=== PATIENT | female | born 1950 | race Caucasian/White ===

== ENCOUNTER 2017-09-01 06:22 | Inpatient (IN) ==
[2017-09-01] MEDS ORDERED: LOPRESSOR ONE (06:47)
[2017-09-01] MEDS ORDERED: ZOFRAN ONE (06:48)
[2017-09-01] MEDS ORDERED: MORPHINE ONE (06:49)
[2017-09-01] MEDS ORDERED: ZOFRAN IV ONE (06:51)
[2017-09-01] MEDS ORDERED: MORPHINE IV ONE (06:51)
[2017-09-01] MEDS ORDERED: LOPRESSOR IV ONE (06:52)
[2017-09-01 07:01] LABS: MANUAL DIFF NEEDED? NO
--- NOTE | 2017-09-01 07:01 | EKG Report ---
Test Performed on : 09/01/2017 06:40:46 AM Test Reason : CHEST PAIN Blood Pressure : / mmHG Vent. Rate : 155 BPM Atrial Rate : 170 BPM P-R Int : 000 ms QRS Dur : 078 ms QT Int : 294 ms P-R-T Axes : 000 -11 050 degrees QTc Int : 472 ms Atrial fibrillation. with rapid ventricular response. Marked ST abnormality, possible inferior subendocardial injury Abnormal ECG No previous ECGs available Unconfirmed Result
[2017-09-01 07:03] LABS: BASO% 0.3 % (0.0-0.8); EOS# 0.08 X1000 (0.0-0.7); HEMATOCRIT 43.1 % (37.0-47.0); HEMOGLOBIN 15.3 g/dL (12.0-16.0); IMM GRAN# 0.05 X1000 (0.0-0.04); IMM GRAN% 0.6 % (0.0-0.5); LYMPH# 1.83 X1000 (1.2-3.4); LYMPH% 22.9 % (20.5-51.1); MCH 33.5 PG (27-31); MCHC 35.5 g/dL (33-37); MCV 94.3 FL (81-99); MONO# 1.02 X1000 (0.11-0.59); MONO% 12.8 % (1.7-9.3); MPV 9.3 FL (7.4-10.4); NEUT% 62.4 % (42.2-75.2); PLT 328 X1000 (130-400); RBC 4.57 XMIL (4.2-5.4)
[2017-09-01 07:21] LABS: INR 0.92 (0.86-1.15); PROTIME 13.1 Seconds (12.1-15.5); PTT PL 21.8 Seconds (22.6-43.9)
[2017-09-01 07:24] LABS: AGAP 20; ALBUMIN 3.8 g/dL (3.5-5.0); ALKALINE PHOSPHATASE 44 U/L (32-104); AMYLASE 71 U/L (20-200); BUN 10 mg/dL (8-22); CALCIUM 9.4 mg/dL (8.8-10.2); CHLORIDE 96 mmol/L (98-107); CK PROFILE 90 U/L (24-173); COSMO 267; GOT 18 U/L (10-30); GPT 12 U/L (10-36); LIPASE 36 U/L (13-60); MAGNESIUM 2.2 mg/dL (1.5-2.7); POTASSIUM 3.7 mmol/L (3.5-5.1); SODIUM 133 mmol/L (136-145); TCO2 17 mmol/L (25-35); TOTAL PROTEIN 7.4 g/dL (6.3-8.3)
[2017-09-01] MEDS ORDERED: NS 1,000 ML IV ONE ×2 (07:53→11:03)
[2017-09-01] MEDS ORDERED: NS 1,000 ML ONE (07:56)
[2017-09-01 08:37] LABS: URINE CULTURE PL NEEDED? NO
[2017-09-01 08:41] LABS: BILIRUBIN URINE NEGATIVE (NEGATIVE); BLOOD URINE NEGATIVE (NEGATIVE); CLARITY CLEAR (CLEAR); COLOR YELLOW; GLUCOSE URINE NEGATIVE (NEGATIVE); LEUKOCYTES URINE NEGATIVE (NEGATIVE); NITRITE URINE NEGATIVE (NEGATIVE); PROTEIN URINE NEGATIVE (NEGATIVE); UROBILINOGEN URINE NORMAL
[2017-09-01 08:42] LABS: URINE EPITHELIAL CELLS >10 /HPF (<10); URINE SOURCE CLEAN CATCH; URINE WBC <10 /HPF (<10)
--- NOTE | 2017-09-01 10:02 | EKG Report ---
Test Performed on : 09/01/2017 09:01:42 AM Test Reason : repeat Blood Pressure : / mmHG Vent. Rate : 125 BPM Atrial Rate : 141 BPM P-R Int : 000 ms QRS Dur : 074 ms QT Int : 348 ms P-R-T Axes : 000 -13 030 degrees QTc Int : 502 ms Atrial fibrillation. with rapid ventricular response. with premature ventricular or aberrantly condu cted complexes. Nonspecific ST abnormality Abnormal ECG When compared with ECG of 01-SEP-2017 06:40, (Unconfirmed) ST less depressed in Inferior leads ST no longer depressed in Anterolateral leads Unconfirmed Result
[2017-09-01] MEDS ORDERED: LOVENOX 1 MG/KG SUBQ ONE (11:08)
[2017-09-01] MEDS ORDERED: CARDIZEM 100 MG/NS 100 MG/100 ML IVPB IV SCH ×2 (11:09→12:28)
[2017-09-01] MEDS ORDERED: LOVENOX ONE (11:35)
[2017-09-01] MEDS ORDERED: G.I. COCKTAIL PO ONE (12:26)
[2017-09-01] MEDS ORDERED: SODIUM CHLORIDE 0.9% INJ SCH (12:30)
[2017-09-01] MEDS ORDERED: PROTONIX IV SCH (12:30)
[2017-09-01] MEDS: CARAFATE LIQUID PO SCH ×2 (13:28→20:13)
[2017-09-01] MEDS: LOPRESSOR PO SCH ×2 (13:28→20:13)
[2017-09-01] MEDS: CARDIZEM PO SCH ×2 (13:28→20:13)
[2017-09-01] MEDS ORDERED: CARDIZEM PO SCH (14:00)
--- NOTE | 2017-09-01 14:12 | EKG Report ---
Test Performed on : 09/01/2017 12:29:56 PM Test Reason : convert to NSR Blood Pressure : / mmHG Vent. Rate : 080 BPM Atrial Rate : 080 BPM P-R Int : 132 ms QRS Dur : 076 ms QT Int : 386 ms P-R-T Axes : 078 -11 060 degrees QTc Int : 445 ms Normal sinus rhythm. Normal ECG When compared with ECG of 01-SEP-2017 09:01, (Unconfirmed) Sinus rhythm. has replaced Atrial fibrillation. Vent. rate has decreased BY 45 BPM Confirmed by Az Ambriz MD ([id number]) on 10/04/2017 6:33:12 PM
--- NOTE | 2017-09-01 16:11 | HISTORY AND PHYSICAL ---
CHIEF COMPLAINT: Chest pain. HISTORY OF PRESENT ILLNESS: This is a 67-year-old female who comes in from home with an elevated heart rate up into the 150s. She describes pain as pressure like in the center of the chest, increasing up her epigastric area, also with associated shortness of breath. When she came into the ER, she had initial EKG with atrial fibrillation rate of [address] changes in her inferior leads. 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 Apparently this happened a week ago and she was in [place] at that time and I think was observed overnight and went home. She denies a history of atrial fibrillation. She is not on chronic anticoagulation. She is on meloxicam. Recently she has had a course of steroids for an acute back strain injury, so she has been on very high dose steroids the last several days as well. The patient is admitted for atrial fibrillation, RVR and chest pain. PAST MEDICAL HISTORY: 1. Herniated lumbar disk. 2. MVP. 3. Hypertension. 4. GERD. 5. Hiatal hernia. PAST SURGICAL HISTORY: 1. Appendectomy. 2. Hysterectomy. 3. Right knee arthroscopy. 4. Bilateral breast surgery. SOCIAL HISTORY: No tobacco or ethanol. No drugs. ALLERGIES: Ultram, Demerol, Dilaudid, codeine, Tessalon Perles and Levaquin. REVIEW OF SYSTEMS: Ten systems reviewed, otherwise negative. PHYSICAL EXAMINATION: VITAL SIGNS: Blood pressure is 140/65, heart rate 84, respiratory rate 20, temperature 97.5, saturation 99% on 2 L. CARDIOVASCULAR: Regular rate and rhythm. PULMONARY: Bilateral breath sounds clear to auscultation. GASTROINTESTINAL: Abdomen soft, nontender and nondistended. Bowel sounds were positive. HEENT: Pupils are equal, round and reactive to light. Extraocular movements were intact. NECK: Supple. EXTREMITIES: No clubbing or cyanosis. LYMPHATIC: No peripheral edema. NEUROLOGICAL: Nonfocal. DIAGNOSTIC DATA: White count is 7, hemoglobin and hematocrit of 15 and 43, platelets 328. Coags are okay. Basic was normal. Troponin was negative x3. ASSESSMENT: This is a 67-year-old female with MVP, who presents with atrial fibrillation with RVR ad some dyspepsia issues. 1. Atrial fibrillation with rapid ventricular response. Clinically she is stabilizing. She has converted. Dr. Geronimo has already seen her and has recommended going up on her Lopressor. She is also still on Cardizem, so she is getting both. Her CHADS score is about 2, though. She is female and 67, but I will defer to Cardiology about long-term anticoagulation. We will do DVT prophylaxis. 2. GI. She does describe epigastric pain, reflux type symptoms, most consistent with GERD gastritis. I put her on IV PPI. Dr. Geronimo has ordered Carafate. I will do a right upper quadrant, although her liver enzymes are negative. She has no Melgar sign, no white count, and she will probably need an outpatient referral to GI. She is new to this area. This is a service admission. cc: Paulo Melgar MD
--- NOTE | 2017-09-01 16:22 | CONSULTATION ---
DATE OF CONSULTATION: 09/01/2017 REQUESTING PHYSICIAN: Dr. Melgar, Hospitalist Service CHIEF COMPLAINT: Chest pain, palpitations and irregular heartbeat. HISTORY OF PRESENT ILLNESS: Ms. Cruz is a 67-year-old female who normally follows with Dr. Caden Severino, phone number [phone], with the [facility] in [place]. They have relocated to [place] within the past 1 year. She states that she was in her usual state of health up until about a month ago when she started having back pains, and Dr. Barnhart gave her a round of steroids around 08/02/2017. Around that time, she went to the ER because she could not use her right leg. Then on 09/28/2017, she was prescribed a round of steroids again because of recurrence of back pain. She took 6 pills of steroids on 08/30/2017, and she woke up in the middle of the night about 3:00 or 4:00 in the morning with severe substernal chest pain. This was not worsened by respirations or motion. She got really scared and ended up going to [facility] for evaluation to rule out myocardial infarction and they sent her home. Last night she was very nauseous, having dry heaves. Early this morning, she broke out in a sweat at about 3:00 in the morning, having significant chest pain, vomited. She came in to the ER at [facility] and over here, they did EKG at 6:49 in the morning that shows atrial fibrillation with rapid response and diffuse ST-T depression. Subsequent EKG at a lower heart rate shows atrial fibrillation with rate of 125, and the ST depression is not so much more noticeable. Subsequent EKG done after she converted at 12:29 shows sinus rhythm, the ST segment is normal. She has had 3 sets of troponin levels checked thus far, and all of them are negative. Her CPKs are also negative, 3 of them. Her pain has decreased to about 4/10 in intensity. It was 10/10 two days ago. She is more comfortable right now. PAST MEDICAL HISTORY: Irregular heartbeats. She has had syncope in the past. She has been followed by a gum remover for many years in [place]. Eventually over the course of the years, they have done heart catheterizations about 5 to 10 years ago that showed no significant coronary disease. She has been treated for hypertension. She has never had ablation. She has never been diagnosed with atrial fibrillation. 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 She does have chronic back pain. PAST SURGICAL HISTORY: Positive for appendectomy. She had back surgery in 2000. She had right knee surgery, arthroscopic, about 3 years ago. She has had hysterectomy in 1982. She has had 2 breast biopsies. SOCIAL HISTORY: She is . She has no children. She is not a smoker, not a drinker. FAMILY HISTORY: Father had CA at age 54, at the age of 64. One brother had CA in his 60s. HOME MEDICATIONS: Listed included estradiol, meloxicam, hydralazine, cyanocobalamin, metoprolol 50 twice a day and Nexium 20 mg daily. ALLERGIES: Tessalon Perles, codeine, hydromorphone, Levaquin, meperidine and tramadol. REVIEW OF SYSTEMS: Generally able to do everything except for recently when she developed back pain. PHYSICAL EXAMINATION: Blood pressure is 140/65, pulse right now has dropped to 80, respirations 20, temperature 97.5. She is awake, alert and oriented, in no distress. HEENT is unremarkable. Chest: Clear to auscultation and percussion. Heart sounds are regular and rhythmic. No gallop or murmur. Abdomen: Soft, nontender. No masses. No hepatomegaly. Extremities showed good pulses, no peripheral edema. Neurologic: Follows commands. Moves all 4 extremities. DIAGNOSTIC DATA: Blood work showed sodium 133, potassium 3.7, BUN is 10, creatinine 0.6. D-dimer less than 0.22. PT and PTT are normal. Urinalysis is basically normal. IMPRESSION: 1. The patient is presenting with relatively atypical chest pain compounded with atrial fibrillation with rapid response with an abnormal ECG suspicious for ischemia. She had ruled out for myocardial infarction, and she has converted from atrial fibrillation into sinus rhythm. 2. History of "irregular heartbeats" in the past.History of syncope in the past. 3. History of hypertension. 4. Chronic back pain. RECOMMENDATIONS: Since the patient has converted to sinus rhythm, I would probably keep her on metoprolol 50 every 6 hours for the time being with low dose diltiazem. I would arrange for a cardiac CTA to make sure that she does not have any significant coronary stenosis, and if that is the case and she is feeling fine, she could probably be discharged. I believe the etiology of her pain more than likely is gastroesophagitis, probably precipitated by the courses of the steroids. We are going to give her some Carafate and Protonix, and we will see how she does. Further advice will be forthcoming. Thank you for the opportunity to participate in her evaluation. cc: Armand Geronimo MD MTDD
[2017-09-01] MEDS: LOVENOX SUBQ SCH ×2 (17:00→17:01)
[2017-09-02] MEDS: CARAFATE LIQUID PO SCH ×2 (01:55→08:11)
[2017-09-02] MEDS: CARDIZEM PO SCH ×2 (01:55→08:11)
[2017-09-02] MEDS: LOPRESSOR PO SCH ×2 (01:55→08:11)
[2017-09-02 05:38] LABS: MANUAL DIFF NEEDED? NO
[2017-09-02 05:59] LABS: BASO% 0.4 % (0.0-0.8); EOS# 0.15 X1000 (0.0-0.7); EOS% 2.7 % (0.0-10.0); HEMATOCRIT 36.5 % (37.0-47.0); HEMOGLOBIN 11.8 g/dL (12.0-16.0); IMM GRAN# 0.05 X1000 (0.0-0.04); IMM GRAN% 0.9 % (0.0-0.5); LYMPH# 1.43 X1000 (1.2-3.4); LYMPH% 25.5 % (20.5-51.1); MCH 31.8 PG (27-31); MCHC 32.3 g/dL (33-37); MCV 98.4 FL (81-99); MONO# 0.65 X1000 (0.11-0.59); MONO% 11.6 % (1.7-9.3); MPV 10.3 FL (7.4-10.4); NEUT% 58.9 % (42.2-75.2); PLT 257 X1000 (130-400); RBC 3.71 XMIL (4.2-5.4)
--- NOTE | 2017-09-02 06:14 | EKG Report ---
Test Performed on : 09/02/2017 06:07:41 AM Test Reason : atrial fibrillation Blood Pressure : / mmHG Vent. Rate : 067 BPM Atrial Rate : 067 BPM P-R Int : 150 ms QRS Dur : 080 ms QT Int : 424 ms P-R-T Axes : 071 -13 047 degrees QTc Int : 448 ms Normal sinus rhythm. Normal ECG When compared with ECG of 01-SEP-2017 12:29, (Unconfirmed) No significant change was found Confirmed by Az Ambriz MD ([id number]) on 10/04/2017 6:32:21 PM
[2017-09-02 06:22] LABS: AGAP 8; BUN 7 mg/dL (8-22); CALCIUM 7.8 mg/dL (8.8-10.2); CHLORIDE 104 mmol/L (98-107); CK PROFILE 71 U/L (24-173); COSMO 267; POTASSIUM 3.7 mmol/L (3.5-5.1); SODIUM 135 mmol/L (136-145); TCO2 23 mmol/L (25-35)
--- NOTE | 2017-09-02 09:18 | Diag Imaging Result Doc PS360 ---
EXAM: US GB < RUQ (LIMITED) HISTORY: epigastric pain TECHNIQUE: COMPARISON: None. FINDINGS: Normal pancreas, aorta, and inferior vena cava. No hepatic abnormality. No ascites in the right upper quadrant. Normal right kidney. No hydronephrosis. Normal gallbladder. No stones. The common bile duct measures 3 mm. IMPRESSION: Normal right upper quadrant ultrasound. Electronically signed by Trevor Smith 09/02/2017 9:16 AM
[2017-09-02] MEDS ORDERED: LOPRESSOR ONE (11:11)
[2017-09-02] MEDS ORDERED: NITROGLYCERIN LINGUAL SPRAY ONE (11:11)
--- NOTE | 2017-09-02 11:36 | Diag Imaging Result Doc PS360 ---
EXAM: CT ANGIOGRAM HEART W/WO CONT HISTORY: chest pain/abnormal ECG TECHNIQUE: This is an over read of the mediastinal structures, lungs, chest, and upper abdomen included from a coronary artery CT angiogram. Coronary arteries, aorta, and great vessels will be reviewed and interpreted under separate report by one the cardiologists with [facility]. COMPARISON: None. FINDINGS: Calcium score equals zero. No enlarged mediastinal or hilar lymph nodes. No pleural effusions. There is basilar atelectasis. No consolidation. No lung nodules. There is fatty infiltration of the liver. IMPRESSION: Fatty infiltration of the liver, otherwise negative exam. Electronically signed by Trevor Smith 09/02/2017 11:34 AM
--- NOTE | 2017-09-02 12:59 | ECHO REPORT ---
ORDER DATE: 09/02/2017 ECHOCARDIOGRAPHIC MEASUREMENTS: 1. Interventricular septum 0.8. 2. Left ventricular posterior wall 0.8. 3. Diastolic diameter 4.5. 4. Left atrium 3.7. 5. Aorta 2.8. 6. Aortic valve leaflets were trileaflet. 7. Mitral valve was normal. 8. Tricuspid valve was normal. 9. Pulmonic valve was normal. 10. Normal left ventricular cavity size. 11. Estimated ejection fraction of 70%. 12. There is left atrial enlargement. 13. There is no aortic stenosis. 14. There is trace aortic regurgitation. 15. There is mild mitral regurgitation. 16. Mild tricuspid regurgitation. 17. Peak velocity across the tricuspid valve was 2.7 m/sec. 18. Pulmonary artery systolic pressure of 39-42 mmHg. 19. There is mild pulmonary regurgitation. 20. There is no pericardial effusion or obvious intracardiac mass or thrombus. cc: MD Paulo Clark MD
[2017-09-02] MEDS ORDERED: CARDIZEM CD PO ONE (13:06)
[2017-09-02 13:21] VITALS: BP 157/57
--- NOTE | 2017-09-02 13:25 | CTA CORONARY ---
DATE: 09/02/2017 INDICATION: Chest pain, paroxysmal atrial fibrillation. Coronary artery disease is being evaluated. DESCRIPTION OF PROCEDURE: The patient was treated with beta blockers and calcium blockers. She was brought to the cardiac CT suite. She received intravenous dye per protocol. Multiple tomographic views of the cardiac structure were obtained. The following is the summary of the main findings. FINDINGS: 1. The left atrium and its appendage appear to be anatomically normal. 2. The pulmonary veins have normal anatomic configuration. Two superior and two inferior pulmonary veins. 3. Pulmonary arteries also appear to have normal configuration. There is no evidence of pulmonary embolism or blood clot within the pulmonary arteries proximally. 4. The aortic valve has 3 cusps. The ascending aorta appears to be unremarkable. The ascending thoracic aorta shows scattered plaque. 5. The mitral valve appears to be grossly normal. 6. Left ventricle shows normal function with ejection fraction of 70% with normal end diastolic volume at 67 mL. 7. The left atrium and right atrium appear to be grossly normal. CORONARY ARTERIES: 1. Left main coronary artery: This vessel appears to be anatomically normal. It gives rise to LAD and circumflex. 2. Left anterior descending coronary artery: This vessel shows some proximal narrowing of no more than 25%, without any definite significant plaque. This vessel gives rise to septal branches, a more distal diagonal branch, and it wraps around the apex of the left ventricle. As it reaches the apex of the left ventricle, it gives rise to a terminal diagonal. The LAD is basically free of any critical obstruction. 3. Circumflex coronary artery: This vessel is nondominant. It gives rise to a lateral branch which is free of any obstruction. The high lateral branch is a normal caliber vessel. It supplies the anterolateral portion of the left ventricle. Then the circumflex gives rise to a tiny midlateral branch and more distally gives rise to a good size posterolateral vessel which is free of any obstruction. The circumflex system is free of any disease. 4. Right coronary artery: The right coronary artery is a dominant vessel. It arises from the right coronary sinus of Valsalva in a normal fashion. It gives rise to sinus malka branch. The right coronary artery is tortuous, and it supplies acute marginal vessels. Distally it supplies the posterior descending branch and a small tortuous posterolateral vessel. The right coronary artery and its terminal branches appear to be free of any significant obstruction. CALCIUM SCORE: The calcium score is zero. PERICARDIUM: The pericardium appears to be free of any calcification or any significant fluid. SUMMARY: This study shows: 1. No evidence of any coronary artery obstruction. The left main, the LAD, circumflex and right coronary artery are free of any critical lesions. The proximal LAD seems to have a less than 25% tubular narrowing; however, no significant plaque appears to be associated with it. It may be just an anatomical variant. 2. Normal left ventricular systolic function. Ejection fraction is 70%. 3. Unremarkable aortic valve, aorta, mitral valve, left atrial appendage and pulmonary arteries. 4. Calcium score was zero. 5. No pericardial effusion was noted. Clinical correlation is recommended. Cardiovascular prognosis for medium and probably detention is good. cc: Armand Geronimo MD
--- NOTE | 2017-09-02 20:44 | PROGRESS NOTE ---
DATE: 09/02/2017 Patient seen and examined by myself. Full note dictated by the nurse practitioner. Patient is feeling much better. She is scheduled for a stress test this morning and should that be normal she will be discharged home this afternoon. cc: Trenton Cedeno MD
--- NOTE | 2017-09-03 08:14 | DISCHARGE SUMMARY ---
ADMISSION DATE: 09/01/2017 DISCHARGE DATE: 09/02/2017 DIAGNOSES: 1. Atrial fibrillation, rapid ventricular response. 2. Gastroesophageal reflux disease. 3. Hypertension. 4. History of hiatal hernia. CONSULTS: Dr. Geronimo, cardiology. DIAGNOSTICS: 1. Cardiac CT revealed a calcium score equal to 0. No enlarged mediastinal or hilar lymph nodes. No pleural effusions. There is bibasilar atelectasis with no consolidation and no lung nodules. There is fatty infiltration of the liver. 2. Coronary angiography CT revealed calcium score of 0. Pericardium appears to be free of any calcification or any significant fluid. No evidence of any coronary artery obstruction. Left main, LAD, circumflex, right coronary artery are free of critical lesions. The proximal LAD seems to have a less than 25% narrowing with no plaque appearing. 3. Echocardiogram revealed an EF of 70% with normal left ventricular cavity size. There is no pericardial effusion or obvious intracardiac mass or thrombus seen. 4. Abdominal ultrasound revealed normal right upper quadrant ultrasound. HOSPITAL COURSE: Ms. Cruz presented to the emergency room complaining of chest pains and palpitations. She was found to be in atrial fibrillation, RVR. She ruled out for MS. She did convert from atrial fibrillation to sinus rhythm, being controlled on Cardizem p.o. She had no further epigastric pain or burning. DISCHARGE PHYSICAL EXAMINATION: Cardiovascular: Regular rate and rhythm. S1 and S2 are appreciated. Pulmonary: Breath sounds are clear with no increased work of breathing noted. Gastrointestinal: Abdomen is soft, nontender, nondistended with bowel sounds in all 4 quadrants. Extremities: No clubbing, cyanosis, or edema. Calves are nontender and pulses are palpable x4. Neurologic: She is alert and oriented x3. Cranial nerves 2-12 grossly intact. PROBLEM LIST: 1. Atypical chest pain compounded with atrial fibrillation, rapid ventricular response, resolved. 2. Atrial fibrillation, rapid ventricular response, resolved, currently in sinus rhythm. 3. Hypertension. 4. Gastroesophageal reflux disease. 5. Hiatal hernia. DISCHARGE MEDICATIONS: Vagifem 10 mcg as directed, Nexium 20 mg daily, meloxicam 15 daily, Apresoline 25 b.i.d., Carafate 1 g 4 times a day, estradiol 1 mg daily, Cardizem CD 120 mg daily. FOLLOWUP: She is to follow up with Dr. Geronimo in the next 2-3 weeks, sooner if needed. She has been instructed to return to the emergency room for any recurrent chest pain, palpitations, dizziness, syncope, or any questions or concerns that she may have. DISPOSITION: She is being discharged home in stable condition with family members. TIME SPENT: This is a greater than 30 minute discharge. Dictated by YENNY Dooley for Trenton Cedeno MD cc: YENNY Dooley MD
--- NOTE | 2017-09-08 06:31 | PROVIDER DOCUMENTATION ---
This chart was entered by Martita Patterson Scribe, acting as scribe for Az Ambriz MD. HPI-Abdominal Pain/GI Problem - General Chief Complaint: Epigastric Pain Stated Complaint: "BURNING ESOPHAGUS" Time Seen by Provider: 09/01/17 06:56 Source: patient, family Allergies/Adverse Reactions: Patient Allergies Allergy/AdvReac Type Severity Reaction Status Date / Time benzonatate Allergy Unknown Verified 09/01/17 06:39 [From Tessalon Perles] codeine Allergy Unknown Verified 09/01/17 06:39 hydromorphone [From Dilaudid] Allergy Unknown Verified 09/01/17 06:39 levofloxacin Allergy Unknown Verified 09/01/17 06:39 meperidine [From Demerol] Allergy Unknown Verified 09/01/17 06:39 tramadol [From Ultram] Allergy Unknown Verified 09/01/17 06:39 Home Medications: Home Medication List Medication Instructions Recorded Confirmed Last Taken Type Cyanocobalamin (Vitamin B-12) 3 tab PO DAILY 09/01/17 09/01/17 Unknown History [Vitamin B12] Esomeprazole Magnesium [Nexium] 20 mg PO DAILY 09/01/17 09/01/17 Unknown History Estradiol 1 mg PO DAILY 09/01/17 09/01/17 Unknown History Estradiol [Vagifem] 10 mcg VAG DIRECTED 09/01/17 09/01/17 Unknown History Hydralazine [Apresoline] 25 mg PO BID 09/01/17 09/01/17 Unknown History Meloxicam 15 mg PO DAILY 09/01/17 09/01/17 Unknown History Diltiazem C.d. [Cardizem C.d] 120 mg PO DAILY #30 capsule 09/02/17 Unknown Rx Sucralfate [Carafate] 1 gm PO 4XDAY #120 tablet 09/02/17 Unknown Rx - History of Present Illness-ABD Nature of Presenting Problems: 67 year old female presents to the ER with complaint of epigastric pain, N/V/D and generalized weakness x 2 days. Pt was seen at ER 2 days ago for same symptoms. Pt presents today because symptoms are still presents. Pt describes burning in esophagus and is diaphoretic. Abdominal Pain Onset Location: reports: epigastric Onset/Duration: reports: 2 days ago Timing: reports: still present Associated Symptoms: reports: diaphoresis, diarrhea, nausea, vomiting, weakness Review of Systems - Adult - REVIEW OF SYSTEMS - ADULT Constitutional: denies: chills, fever Eyes: reports: no symptoms reported Ears, Nose, Mouth & Throat: reports: no symptoms reported Cardiovascular: reports: no symptoms reported Respiratory: reports: no symptoms reported Gastrointestinal: reports: diarrhea, nausea, vomiting, other (epigastric pain) Genitourinary: reports: no symptoms reported Musculoskeletal: reports: no symptoms reported Integumentary: reports: no symptoms reported Neurological: reports: no symptoms reported Psychiatric: reports: no symptoms reported Endocrine: reports: no symptoms reported Hematologic/Lymphatic: reports: no symptoms reported Allergic/Immunologic: reports: no symptoms reported All Other Systems: Reviewed and Negative Past History - Adult - PAST MEDICAL HISTORY-ADULT Review of Records: reports: Nursing Assessment Review, Medications Reviewed - IMMUNIZATION STATUS Childhood Immunizations: See Nurse Assessment Flu Vaccine: See Nurse Assessment Physical Exam-General - PHYSICAL EXAM-ADULT Initial Vital Signs Reviewed: Yes - CONSTITUTIONAL General Appearance: alert, no apparent distress - EYES Eyes: PERRL/EOMI, pink conjunctivae - HEAD, EARS, NOSE, MOUTH & THROAT HENMT: normocephalic/atraumatic, moist mucous membranes - NECK Neck: non-tender, supple - RESPIRATORY Respiratory: lungs clear, normal breath sounds - CARDIOVASCULAR Cardiovascular: normal peripheral pulses, regular rate, rhythm - MUSCULOSKELETAL Back Exam: no CVA tenderness, no vertebral tenderness Extremity: non-tender, normal inspection - SKIN Integumentary: diaphoresis - NEUROLOGIC Neurologic: grossly normal, no motor/sensory deficits - PSYCHIATRIC Psych/Mental Status: normal mood/affect, normal thought content, normal thought process, oriented x 3 Progress - PLAN OF CARE/RESULTS Progress/Plan/Lab Results: Vital Signs - 8 hr 09/01/17 06:25 09/01/17 06:48 09/01/17 06:54 Temperature 97.5 F L Pulse Rate 154 H 168 H 155 H Respiratory Rate 24 20 25 H Blood Pressure 181/102 150/89 O2 Sat by Pulse Oximetry 97 99 98 09/01/17 06:56 09/01/17 06:58 09/01/17 07:02 Temperature Pulse Rate 137 H 136 H 121 H Respiratory Rate 25 H 31 H 25 H Blood Pressure 144/91 145/87 139/69 O2 Sat by Pulse Oximetry 98 100 87 L 09/01/17 07:08 09/01/17 07:10 09/01/17 07:11 Temperature Pulse Rate 124 H 130 H 119 H Respiratory Rate 27 H 24 34 H Blood Pressure 133/82 146/65 157/59 O2 Sat by Pulse Oximetry 99 99 99 09/01/17 08:52 Temperature Pulse Rate 104 H Respiratory Rate 16 Blood Pressure 106/77 O2 Sat by Pulse Oximetry 97 Laboratory Results - last 24 hr 09/01/17 09/01/17 09/01/17 06:53 06:53 06:53 WBC RBC Hgb Hct MCV MCH MCHC RDW Std Deviation Plt Count MPV Immature Gran % (Auto) Neut % (Auto) Lymph % (Auto) [place] % (Auto) Eos % (Auto) Baso % (Auto) Immature Gran # (Auto) Neut # (Auto) Lymph # (Auto) [place] # (Auto) Eos # (Auto) Baso # (Auto) PT INR APTT (Factor Assay) D-Dimer Sodium 133 L Potassium 3.7 Chloride 96 L Carbon Dioxide 17 L Anion Gap 20 BUN 10 Creatinine 0.6 Estimated GFR/1.73 m2 > 60 BUN/Creatinine Ratio 17 Glucose 124 H Calculated Osmolality 267 Calcium 9.4 Magnesium 2.2 Total Bilirubin 0.40 AST 18 ALT 12 Alkaline Phosphatase 44 Creatine Kinase 90 Troponin T < 0.010 Phq-R-Rvvbmjskitc Pept 242 Total Protein 7.4 Albumin 3.8 Globulin 4.0 Albumin/Globulin Ratio 1.0 Amylase 71 Lipase 36 Urine Source Urine Color Urine Clarity Urine pH Ur Specific [place] Urine Protein Urine Ketones Urine Blood Urine Nitrite Urine Bilirubin Urine Urobilinogen Urine Microscopic RBC Urine WBC Urine Microscopic WBC Ur Epithelial Cells Urine Bacteria Urine Glucose 09/01/17 09/01/17 09/01/17 06:53 06:53 08:20 WBC 7.98 RBC 4.57 Hgb 15.3 Hct 43.1 MCV 94.3 MCH 33.5 H MCHC 35.5 RDW Std Deviation 13.8 Plt Count 328 MPV 9.3 Immature Gran % (Auto) 0.6 H Neut % (Auto) 62.4 Lymph % (Auto) 22.9 [place] % (Auto) 12.8 H Eos % (Auto) 1.0 Baso % (Auto) 0.3 Immature Gran # (Auto) 0.05 H Neut # (Auto) 4.98 Lymph # (Auto) 1.83 [place] # (Auto) 1.02 H Eos # (Auto) 0.08 Baso # (Auto) 0.02 PT 13.1 INR 0.92 APTT (Factor Assay) 21.8 L D-Dimer < 0.22 L Sodium Potassium Chloride Carbon Dioxide Anion Gap BUN Creatinine Estimated GFR/1.73 m2 BUN/Creatinine Ratio Glucose Calculated Osmolality Calcium Magnesium Total Bilirubin AST ALT Alkaline Phosphatase Creatine Kinase Troponin T Opu-D-Cndtqxmiiee Pept Total Protein Albumin Globulin Albumin/Globulin Ratio Amylase Lipase Urine Source CLEAN CATCH Urine Color YELLOW Urine Clarity CLEAR Urine pH 7.0 Ur Specific [place] 1.010 Urine Protein NEGATIVE Urine Ketones TRACE Urine Blood NEGATIVE Urine Nitrite NEGATIVE Urine Bilirubin NEGATIVE Urine Urobilinogen NORMAL Urine Microscopic RBC Not Reportable Urine WBC NEGATIVE Urine Microscopic WBC <10 Ur Epithelial Cells >10 A Urine Bacteria 1+ Urine Glucose NEGATIVE Orders Category Date Time Status Cardiac Monitoring DIRECTED Care 09/01/17 06:49 Active Oxygen Therapy- ED Nursing DIRECTED Care 09/01/17 06:49 Active Saline Loc DIRECTED Care 09/01/17 06:49 Active NPO Diet 09/01/17 06:49 Active AMYLASE [CHEM] Stat Lab 09/01/17 06:53 Completed CBC WITH ELECTRONIC DIFF [HEME] Stat Lab 09/01/17 06:53 Completed CK PROFILE [SP CHEM] Stat Lab 09/01/17 06:53 Completed CK PROFILE [SP CHEM] Stat Lab 09/01/17 09:08 Received COMPREHENSIVE METABOLIC PANEL [CHEM] Stat Lab 09/01/17 06:53 Completed D-DIMER PL [COAG] Stat Lab 09/01/17 06:53 Completed LIPASE [CHEM] Stat Lab 09/01/17 06:53 Completed MAGNESIUM [CHEM] Stat Lab 09/01/17 06:53 Completed PRO B-NATRIURETIC PEPTIDE Stat Lab 09/01/17 06:[address] Com[address]IME WITH INR PL [COAG] Stat Lab 09/01/17 06:[address] [COAG] Stat Lab 09/01/17 06:53 Completed TROPONIN T Stat Lab 09/01/17 06:53 Completed TROPONIN T Stat Lab 09/01/17 09:[address] W/POSS RFLX CULT [URINALYSIS] Stat Lab 09/01/17 08:20 Completed 0.9% Sodium Chloride Inj [Ns] 1,000 ml Med 09/01/17 07:56 Discontinued .ROUTE As Directed 0.9% Sodium Chloride Inj [Ns] 1,000 ml Med 09/01/17 07:53 Discontinued IV 999 mls/hr Metoprolol [Lopressor] Med 09/01/17 06:47 Discontinued 5 mg .ROUTE .STK-MED ONE Metoprolol [Lopressor] Med 09/01/17 06:52 Discontinued 5 mg IV NOW ONE Morphine Med 09/01/17 06:49 Discontinued 2 mg .ROUTE .STK-MED ONE Morphine Med 09/01/17 06:51 Discontinued 2 mg IV NOW ONE Ondansetron [Zofran] Med 09/01/17 06:48 Discontinued 4 mg .ROUTE .STK-MED ONE Ondansetron [Zofran] Med 09/01/17 06:51 Discontinued 4 mg IV NOW ONE EKG [EKG] Stat Ther 09/01/17 06:49 Draft EKG [EKG] Stat Ther 09/01/17 08:54 Ordered Result Diagrams: 09/02/17 04:03 09/02/17 04:03 - EKG 1 Time of EKG reading by physician:: 06:40 EKG Read and Signed by:: Az Ambriz EKG Interpretation (*Must complete 3 of following elements*): Abnormal Rate: 155 Rhythm: atrial fibrillation with rapid ventricular response Comments: marked ST abnormality, possible inferior subendocarial injury 2 Time of EKG reading by physician:: 09:01 EKG Read and Signed by:: Az Ambriz EKG Interpretation (*Must complete 3 of following elements*): Abnormal Rate: 125 Rhythm: atrial fibrillation with rapid ventricular response with premature ventricu ST Wave: non-specific ST changes Departure - Departure Date of Disposition Decision: 09/02/17 Time of Disposition Decision: 15:55 DIAGNOSIS: Abdominal pain, Afib Disposition: HOME 01 Certified Medical Emergency: Emergent Condition: Stable - Critical Care Note This patient required my direct & personal management of CC.: No Attestation - Physician/ MODESTA Attestation Patient care was provided by Advanced Practice Provider:: No The physician spent face to face time with patient:: Yes Advanced Practice Provider documentation review:: Supervising physician onsite and consulted in the evaluation and care of this patient. The physician did have a face to face encounter with the patient. This chart was documented by the indicated scribe, (Martita Patterson, Scribe) and accurately reflects the services I performed and decisions made by me, Az Ambriz MD, as attested by the provider's signature.
== END 2017-09-02 15:55 | disposition home or self-care (01) ==
LOC: P.ED 06:22 → P.ICU 11:23 → SUATTDRO 11:23
PROVIDERS: ATTEND Family Medicine

== ENCOUNTER 2019-06-22 09:17 | Observation (INO) ==
[2019-06-22] MEDS ORDERED: ASPIRIN PO ONE (09:18)
[2019-06-22] MEDS ORDERED: NITROGLYCERIN SL ONE (09:27)
--- NOTE | 2019-06-22 09:53 | Diag Imaging Result Doc PS360 ---
EXAM: CHEST-1 VIEW - 06/22/2019 HISTORY: SOB TECHNIQUE: Portable chest one view COMPARISON: 10/01/2017 FINDINGS: Heart size appears within normal limits. The lungs appear clear. There is no pleural effusion or pneumothorax identified. IMPRESSION: No evidence of acute disease. Electronically signed by Rico Reynoso 06/22/2019 9:51 AM
[2019-06-22] MEDS ORDERED: MORPHINE IV ONE (10:03)
[2019-06-22 10:07] LABS: BASO# 0.02 X1000 (0.0-0.2); BASO% 0.2 % (0.0-0.8); EOS# 0.01 X1000 (0.0-0.7); EOS% 0.1 % (0.0-10.0); HEMATOCRIT 42.3 % (37.0-47.0); HEMOGLOBIN 14.4 g/dL (12.0-16.0); IMM GRAN# 0.03 X1000 (0.0-0.04); IMM GRAN% 0.3 % (0.0-0.5); LYMPH# 0.95 X1000 (1.2-3.4); MCH 33.7 PG (27-31); MCV 99.1 FL (81-99); MONO# 0.36 X1000 (0.11-0.59); MONO% 4.2 % (1.7-9.3); MPV 9.4 FL (7.4-10.4); NEUT# 7.29 X1000 (1.4-6.5); NEUT% 84.2 % (42.2-75.2); PLT 227 X1000 (130-400); RBC 4.27 XMIL (4.2-5.4); WBC 8.66 X1000 (4.8-10.8)
[2019-06-22 10:11] LABS: INR 1.03; PTT 27.1 Seconds (22.3-41.8)
[2019-06-22] MEDS ORDERED: ZOFRAN IV ONE (10:12)
[2019-06-22 10:17] LABS: AGAP 13; ALBUMIN 4.1 g/dL (3.5-5.0); ALKALINE PHOSPHATASE 37 U/L (32-104); BUN 6 mg/dL (8-22); CALCIUM 8.6 mg/dL (8.8-10.2); CHLORIDE 94 mmol/L (98-107); CK PROFILE 87 U/L (24-173); COSMO 260; CREATININE 0.4 mg/dL (0.5-0.9); ESTIMATED GFR > 60; GLUCOSE 135 mg/dL (70-104); GOT 18 U/L (10-30); GPT 10 U/L (10-36); SODIUM 130 mmol/L (136-145); TCO2 23 mmol/L (25-35); TOTAL PROTEIN 6.8 g/dL (6.3-8.3)
--- NOTE | 2019-06-22 10:23 | PROVIDER DOCUMENTATION ---
This chart was entered by Nayely Og Scribe, acting as scribe for Yaya Manuel MD. HPI-Chest Pain - General Chief Complaint: Chest Pain Stated Complaint: CHEST PAIN Time Seen by Provider: 06/22/19 09:23 Source: patient Allergies/Adverse Reactions: Patient Allergies Allergy/AdvReac Type Severity Reaction Status Date / Time amlodipine Allergy Unknown Verified 05/09/19 21:23 benzonatate Allergy Unknown Verified 09/01/17 06:39 [From Tessalon Perles] carvedilol Allergy Unknown Verified 05/09/19 21:23 clonidine Allergy Unknown Verified 05/09/19 21:23 codeine Allergy Unknown Verified 09/01/17 06:39 diltiazem Allergy Unknown Verified 05/09/19 21:23 hydromorphone [From Dilaudid] Allergy Unknown Verified 09/01/17 06:39 levofloxacin Allergy Unknown Verified 09/01/17 06:39 lisinopril Allergy Unknown Verified 05/09/19 21:23 meperidine [From Demerol] Allergy Unknown Verified 09/01/17 06:39 minoxidil Allergy Unknown Verified 05/09/19 21:23 spironolactone Allergy VOMITING Verified 05/09/19 21:23 tramadol [From Ultram] Allergy Unknown Verified 09/01/17 06:39 Home Medications: Home Medication List Medication Instructions Recorded Confirmed Last Taken Type Cyanocobalamin (Vitamin B-12) 3 tab PO DAILY 09/01/17 09/01/17 Unknown History [Vitamin B12] Esomeprazole Magnesium [Nexium] 20 mg PO DAILY 09/01/17 09/01/17 Unknown History Estradiol 1 mg PO DAILY 09/01/17 09/01/17 Unknown History Estradiol [Vagifem] 10 mcg VAG DIRECTED 09/01/17 09/01/17 Unknown History Hydralazine [Apresoline] 25 mg PO BID 09/01/17 09/01/17 Unknown History Meloxicam 15 mg PO DAILY 09/01/17 09/01/17 Unknown History Diltiazem C.d. [Cardizem C.d] 120 mg PO DAILY #30 capsule 09/02/17 Unknown Rx Sucralfate [Carafate] 1 gm PO 4XDAY #120 tablet 09/02/17 Unknown Rx Promethazine [Phenergan] 1 - 2 tab PO Q6H PRN PRN #18 tablet 09/21/17 Unknown Rx Sucralfate [Carafate Liquid] 1 tbs PO Q6HR PRN #8 oz 09/21/17 Unknown Rx Hydrocodone/APAP 7.5 mg/325 mg 1 ea PO Q8H PRN PRN #10 tab 10/01/17 Unknown Rx [[place]arshall-7.5] Ondansetron Odt [Zofran 4 mg Odt] 4 mg PO Q8H PRN PRN #10 tab 10/01/17 Unknown Rx - History of Present Illness-CP Nature of Presenting Problem: 69yof presents to ED cc substernal chest pain/pressure that woke her from sleep at 5am and hasn't resolved. Pt also reports nausea but denies V/D. Pt is on a daily aspirin but didn't take it captain room service. Pt has hx of HTN and AFIB. Location: reports: substernal Quality of Pain: reports: pressure Severity in ED: mild Onset/Duration: this morning (5am) Timing: still present Context/Activities at Onset: reports: sleep Modifying Factors: improves with: nothing Associated Symptoms: reports: nausea, shortness of breath Nitro Today/Relief: no nitro taken today Review of Systems - Adult - REVIEW OF SYSTEMS - ADULT Constitutional: reports: see HPI, fatique. denies: chills, fever Eyes: reports: no symptoms reported Ears, Nose, Mouth & Throat: reports: no symptoms reported Cardiovascular: reports: see HPI, chest pain, irregular heart rate, palpitations . denies: syncope Respiratory: reports: see HPI, shortness of breath. denies: cough, wheezing Gastrointestinal: reports: see HPI, nausea. denies: abdominal pain, constipation, diarrhea, vomiting Genitourinary: reports: no symptoms reported Musculoskeletal: reports: no symptoms reported Integumentary: reports: no symptoms reported Neurological: reports: no symptoms reported Psychiatric: reports: no symptoms reported Endocrine: reports: no symptoms reported Hematologic/Lymphatic: reports: no symptoms reported Allergic/Immunologic: reports: no symptoms reported All Other Systems: Reviewed and Negative Past History - Adult - PAST MEDICAL HISTORY-ADULT Review of Records: reports: Nursing Assessment Review, Medications Reviewed, Social history reviewed & non-contributory. Major Childhood Illnesses: reports: denies history Cardiovascular: reports: A-Fib, HTN, hyperlipidemia, other (MVP) Respiratory: reports: denies history Gastrointestinal: reports: denies history Obstetrical/Gynecological: reports: denies history Genitourinary: reports: denies history Musculoskeletal: reports: denies history Neurological: reports: denies history Endocrine/Immune: reports: denies history Other Conditions: reports: denies history - PRIOR SURGERIES/PROCEDURES Surgical/Procedure History: reports: appendectomy, hysterectomy - IMMUNIZATION STATUS Childhood Immunizations: See Nurse Assessment Flu Vaccine: See Nurse Assessment - FAMILY HISTORY Family History: reviewed, not pertinent Physical Exam-General - PHYSICAL EXAM-ADULT Initial Vital Signs Reviewed: Yes - CONSTITUTIONAL General Appearance: appears well, alert, no apparent distress. negative: anxious, combative - EYES Eyes: PERRL/EOMI, pink conjunctivae. negative: photophobia - RESPIRATORY Respiratory: chest non-tender, lungs clear, normal breath sounds, no pleuratic chest pain, no respiratory distress. negative: crackles, rales, rhonchi, stridor, wheezing - CARDIOVASCULAR Cardiovascular: normal peripheral pulses, regular rate, rhythm, no edema, no gallop, no JVD, no murmur. negative: bradycardia, tachycardia - MUSCULOSKELETAL Extremity: non-tender, no pedal edema, no calf tenderness, swelling (mild both lower legs) - SKIN Integumentary: normal color, normal turgor, warm/dry. negative: cyanosis, diaphoresis, jaundice - NEUROLOGIC Neurologic: electronic assembly II-XII nml as tested, grossly normal, no motor/sensory deficits. negative: facial droop, focal weakness - PSYCHIATRIC Psych/Mental Status: normal mood/affect, normal thought content, normal thought process, oriented x 3. negative: disoriented x 3, anxious, disheveled, depressed affect - HEART Score HEART Score: History: Slightly Suspicious HEART Score: ECG: Normal HEART Score: Age: > or = 65 Years HEART Score: Risk Factors for Atherosclerotic Disease: 1 or 2 Risk Factors Progress - PLAN OF CARE/RESULTS Progress/Plan/Lab Results: Vital Signs - 8 hr 06/22/19 09:25 06/22/19 09:33 Temperature 98.3 F Pulse Rate 72 Respiratory Rate 18 Blood Pressure 195/86 O2 Sat by Pulse Oximetry 98 Laboratory Results - last 24 hr 06/22/19 06/22/19 06/22/19 08:20 08:20 08:20 WBC 8.66 RBC 4.27 Hgb 14.4 Hct 42.3 MCV 99.1 H MCH 33.7 H MCHC 34.0 RDW Std Deviation 13.0 Plt Count 227 MPV 9.4 Immature Gran % (Auto) 0.3 Neut % (Auto) 84.2 H Lymph % (Auto) 11.0 L [place] % (Auto) 4.2 Eos % (Auto) 0.1 Baso % (Auto) 0.2 Immature Gran # (Auto) 0.03 Neut # (Auto) 7.29 H Lymph # (Auto) 0.95 L [place] # (Auto) 0.36 Eos # (Auto) 0.01 Baso # (Auto) 0.02 PT 14.0 INR 1.03 PTT (Actin FS) 27.1 Sodium 130 L Potassium 4.0 Chloride 94 L Carbon Dioxide 23 L Anion Gap 13 BUN 6 L Creatinine 0.4 L Estimated GFR/1.73 m2 > 60 BUN/Creatinine Ratio 15 Glucose 135 H Calculated Osmolality 260 Calcium 8.6 L Total Bilirubin 0.30 AST 18 ALT 10 Alkaline Phosphatase 37 Creatine Kinase 87 Troponin T Total Protein 6.8 Albumin 4.1 Globulin 3.0 Albumin/Globulin Ratio 2.0 06/22/19 08:20 WBC RBC Hgb Hct MCV MCH MCHC RDW Std Deviation Plt Count MPV Immature Gran % (Auto) Neut % (Auto) Lymph % (Auto) [place] % (Auto) Eos % (Auto) Baso % (Auto) Immature Gran # (Auto) Neut # (Auto) Lymph # (Auto) [place] # (Auto) Eos # (Auto) Baso # (Auto) PT INR PTT (Actin FS) Sodium Potassium Chloride Carbon Dioxide Anion Gap BUN Creatinine Estimated GFR/1.73 m2 BUN/Creatinine Ratio Glucose Calculated Osmolality Calcium Total Bilirubin AST ALT Alkaline Phosphatase Creatine Kinase Troponin T < 0.010 Total Protein Albumin Globulin Albumin/Globulin Ratio Orders Category Date Time Status Cardiac Monitoring DIRECTED Care 06/22/19 09:19 Active Oxygen Therapy- ED Nursing DIRECTED Care 06/22/19 09:19 Active Saline Loc NOW Care 06/22/19 09:19 Active CHEST-1 VIEW [RAD] Stat Exams 06/22/19 09:19 Completed CBC WITH ELECTRONIC DIFF [HEME] Stat Lab 06/22/19 08:20 Completed CK PROFILE [SP CHEM] Stat Lab 06/22/19 08:20 Completed COMPREHENSIVE METABOLIC PANEL [CHEM] Stat Lab 06/22/19 08:20 Completed PRO B-NATRIURETIC PEPTIDE Stat Lab 06/22/19 09:32 Received PROTIME WITH INR [COAG] Stat Lab 06/22/19 08:20 Completed PTT [COAG] Stat Lab 06/22/19 08:20 Completed TROPONIN T Stat Lab 06/22/19 08:20 Completed Aspirin Med 06/22/19 09:18 Discontinued 325 mg PO NOW ONE Morphine Med 06/22/19 10:03 Discontinued 3 mg IV NOW ONE Nitroglycerin Med 06/22/19 10:30 Active 1 inch TOP Q6H Nitroglycerin Sl [Nitroglycerin] Med 06/22/19 09:27 Discontinued 0.4 mg SL NOW ONE Ondansetron [Zofran] Med 06/22/19 10:12 Discontinued 4 mg IV NOW ONE CP/SOB/Palp >45 yrs of Age Stat Oth 06/22/19 09:18 Ordered EKG [EKG] Stat Ther 06/22/19 09:19 Ordered Result Diagrams: 06/22/19 08:20 06/22/19 08:20 - REASSESSMENT Reassessment #1 Time Reassessed: 10:23 Status: improving (DISCUSSED WITH HOSPITALIST WILL ADMIT) - EKG 1 Time of EKG reading by physician:: 09:29 EKG Read and Signed by:: Yaya Manuel EKG Interpretation (*Must complete 3 of following elements*): Normal Rate: 76 Rhythm: normal sinus QRS: normal PA Interval: normal - XRAY 1 XRAY: Bilateral XRAY Study: Chest Impression: See EMR Report (IMPRESSION: No evidence of acute disease. Electronically signed by Rico Reynoso 06/22/2019 9:51 AM) Departure - Departure Date of Disposition Decision: 06/22/19 Time of Disposition Decision: 10:22 DIAGNOSIS: Chest pain Disposition: ADMITTED INPATIENT 09 Certified Medical Emergency: Emergent Condition: Stable Additional Freetext Instructions: ED Follow Up Instructions: You have been treated by a care provider in the Emergency Department. These instructions are being provided to you so you can have an understanding of how to care for yourself upon discharge. Upon discharge from the Emergency Department, you are responsible for making arrangements for follow-up care by a physician of your choice. Take all prescribed medications as directed. Return to the Emergency Department immediately for any new or worsening symptoms. You may call the Physician Referral phone number at [phone] to obtain a list of Physicians who are taking new patients. Referrals and Follow-Ups: None,PCP [Primary Care Provider] - - Critical Care Note This patient required my direct & personal management of CC.: No Attestation - Physician/ MODESTA Attestation Patient care was provided by Advanced Practice Provider:: No The physician spent face to face time with patient:: Yes Advanced Practice Provider documentation review:: Supervising physician onsite and consulted in the evaluation and care of this patient. The physician did have a face to face encounter with the patient. This chart was documented by the indicated scribe, (Nayely Og, Praveen) and accurately reflects the services I performed and decisions made by me, Yaya Manuel MD, as attested by the provider's signature.
--- NOTE | 2019-06-22 10:43 | EKG Report ---
Test Performed on : 06/22/2019 09:24:40 AM Test Reason : CP Blood Pressure : / mmHG Vent. Rate : 076 BPM Atrial Rate : 076 BPM P-R Int : 154 ms QRS Dur : 086 ms QT Int : 390 ms P-R-T Axes : 077 011 055 degrees QTc Int : 438 ms Normal sinus rhythm. Normal ECG When compared with ECG of 01-OCT-2017 06:32, No significant change was found Unconfirmed Result
[2019-06-22] MEDS ORDERED: ZOFRAN IV PRN (11:07)
[2019-06-22] MEDS ORDERED: MORPHINE IV PRN (11:07)
[2019-06-22] MEDS: NITROGLYCERIN TOP SCH ×2 (11:21→16:10)
[2019-06-22] MEDS: TYLENOL PO PRN (16:14)
[2019-06-22] MEDS ORDERED: NS 1,000 ML IV ONE ×2 (19:30→23:00)
[2019-06-22 19:44] LABS: AGAP 9; ALBUMIN 3.6 g/dL (3.5-5.0); ALKALINE PHOSPHATASE 34 U/L (32-104); BUN 6 mg/dL (8-22); CALCIUM 8.2 mg/dL (8.8-10.2); CHLORIDE 97 mmol/L (98-107); COSMO 264; CREATININE 0.5 mg/dL (0.5-0.9); ESTIMATED GFR > 60; GLUCOSE 103 mg/dL (70-104); SODIUM 133 mmol/L (136-145); TCO2 27 mmol/L (25-35); TOTAL PROTEIN 6.5 g/dL (6.3-8.3)
[2019-06-22 19:45] LABS: GOT 16 U/L (10-30); GPT 9 U/L (10-36)
--- NOTE | 2019-06-22 20:17 | HISTORY AND PHYSICAL ---
CHIEF COMPLAINT: Chest pain. HISTORY OF PRESENT ILLNESS: This is a 69-year-old female with history of atrial fibrillation and mitral valve prolapse, who comes in for chest pain. Chest pain is described as underneath her midsternum, sharp in nature, not pressure-like, did not radiate, "a hard feeling" 10/10 at its worst. She was nauseous with dry heaves. It woke her from sleep around 5 a.m. associated dyspnea. She felt like her blood pressure was high, but she did not check it. She says she has had similar symptoms associated with gastroparesis although she is not a diabetic. She has had stress test, but it has been several years ago. Workup in the ER was unremarkable. Her EKG really did not show any significant ischemic changes. Rest of her data was really unremarkable. She was placed in observation for chest pain. PAST MEDICAL HISTORY: 1. Atrial fibrillation. 2. Hypertension. 3. Mitral valve prolapse. 4. Gastroparesis may actually be GERD. PAST SURGICAL HISTORY: 1. She has had an appendectomy. 2. Hysterectomy. 3. Right total knee arthroplasty. 4. She has had back surgery. SOCIAL HISTORY: No tobacco or ethanol. FAMILY HISTORY: Father had MO starting at 54, at 64. Brother had an MO at 76 years of age. ALLERGIES: To amlodipine, Tessalon, Coreg, clonidine, diltiazem, Dilaudid, Levaquin lisinopril, Demerol, minoxidil, spironolactone, Ultram, multiple medications. HER CURRENT MEDICATIONS: Hydralazine 50 b.i.d., although she told me it was t.i.d., aspirin 81 daily, docusate 100 daily, estradiol 1 daily, metoprolol 150 b.i.d., and Nexium 20 daily. REVIEW OF SYSTEMS: Otherwise negative times a 10 point review of systems. PHYSICAL EXAM: VITAL SIGNS: Currently her blood pressure is 131/44, heart rate is 62, respiratory 16, temperature 97.5 degrees, 97% on room air. GENERAL: A well-developed female in no acute distress. HEAD EXAM: Is normocephalic atraumatic. EYE EXAM: Pupils equal, round, reactive to light. Extraocular movements were intact. EAR, NOSE AND THROAT EXAM: She had moist mucous membranes. NECK EXAM: Was supple. CARDIOVASCULAR EXAM: Was regular rate and rhythm. No murmurs, gallops, or rubs. PULMONARY EXAM: Bilateral breath sounds. Clear to auscultation. GI: Was soft, nontender, nondistended. Bowel sounds are positive. NEUROLOGICAL EXAM: Was nonfocal. Cranial nerves 2-12 were grossly intact. MUSCULOSKELETAL EXAM: Was 5/5 in all 4 extremities. LABORATORY DATA: White count 8, hemoglobin and hematocrit 14 and 42, platelets 227,000. Sodium 132. Coags normal. EKG normal. X-ray nonspecific. ASSESSMENT: This is a 69-year-old female presenting with atypical chest pain, presenting with atypical chest pain. History of mitral valve prolapse and stress. 1. Atypical chest pain. We will do serial cardiac enzymes. We will get an echo. There are mitral valve prolapse issues and perform Lexiscan tomorrow after rule out. 2. Hyponatremia. We will continue gentle hydration and follow closely. 3. Hypertension which is appears accelerated. We may have to adjust her medicines accordingly. She is on nitrates right now pending her workup. We may need to give her some long-standing nitrates. I am going to switch her over to Imdur and see how she does with that. DISPOSITION: Pending her clinical status. We will continue to monitor closely. cc: Paulo Melgar MD
[2019-06-22] MEDS ORDERED: APRESOLINE PO SCH (21:00)
[2019-06-22] MEDS: LOPRESSOR PO SCH (21:34)
[2019-06-22] MEDS: IMDUR PO SCH (21:34)
--- NOTE | 2019-06-23 06:02 | EKG Report ---
Test Performed on : 06/23/2019 05:55:25 AM Test Reason : cp Blood Pressure : / mmHG Vent. Rate : 066 BPM Atrial Rate : 066 BPM P-R Int : 160 ms QRS Dur : 084 ms QT Int : 428 ms P-R-T Axes : 072 -25 024 degrees QTc Int : 448 ms Normal sinus rhythm. Normal ECG When compared with ECG of 22-JUN-2019 09:24, (Unconfirmed) No significant change was found Unconfirmed Result
[2019-06-23] MEDS: NEXIUM PO SCH (06:07)
[2019-06-23 06:09] LABS: BASO# 0.02 X1000 (0.0-0.2); BASO% 0.3 % (0.0-0.8); EOS# 0.07 X1000 (0.0-0.7); EOS% 1.1 % (0.0-10.0); HEMATOCRIT 38.6 % (37.0-47.0); IMM GRAN# 0.02 X1000 (0.0-0.04); IMM GRAN% 0.3 % (0.0-0.5); LYMPH# 1.57 X1000 (1.2-3.4); LYMPH% 25.7 % (20.5-51.1); MCH 32.7 PG (27-31); MCHC 33.7 g/dL (33-37); MONO# 0.64 X1000 (0.11-0.59); MONO% 10.5 % (1.7-9.3); NEUT% 62.1 % (42.2-75.2); PLT 232 X1000 (130-400); RBC 3.98 XMIL (4.2-5.4); RDW 13.2 % (11.5-14.5); WBC 6.12 X1000 (4.8-10.8)
[2019-06-23 06:28] LABS: CHOLESTEROL 182 mg/dL (0-200); HDL 66 mg/dL (45-65); LDL 97 mg/dL; TRIGLYCERIDES 94 mg/dL (35-135); VLDL 19 mg/dL
[2019-06-23 06:42] LABS: BILIRUBIN URINE NEGATIVE (NEGATIVE); BLOOD URINE NEGATIVE (NEGATIVE); CLARITY CLEAR (CLEAR); COLOR YELLOW; GLUCOSE URINE NEGATIVE (NEGATIVE); NITRITE URINE NEGATIVE (NEGATIVE)
[2019-06-23 06:53] LABS: KETONE URINE NEGATIVE (NEGATIVE); SP GRAVITY URINE 1.005
[2019-06-23 06:54] LABS: LEUKOCYTES URINE NEGATIVE (NEGATIVE); PROTEIN URINE NEGATIVE (NEGATIVE); UROBILINOGEN URINE NORMAL
[2019-06-23 06:55] LABS: URINE BACTERIA 3+ /HFP
[2019-06-23 06:56] LABS: URINE CAST NONE SEEN /LPF; URINE CRYSTAL NONE SEEN /HPF; URINE EPITHELIAL CELLS <10 /HPF (<10); URINE RBC <10 /HPF (<10); URINE SOURCE CLEAN CATCH; URINE WBC <10 /HPF (<10); URINE YEAST NONE SEEN /HPF
[2019-06-23] MEDS ORDERED: SODIUM CHLORIDE 0.9% INJ PRN (08:37)
[2019-06-23] MEDS ORDERED: PHENERGAN IV PRN (08:37)
[2019-06-23] MEDS ORDERED: ASPIRIN EC PO SCH (09:00)
[2019-06-23] MEDS ORDERED: COLACE PO SCH (09:00)
[2019-06-23] MEDS: APRESOLINE PO SCH ×3 (10:09→18:50)
[2019-06-23] MEDS: LOPRESSOR PO SCH ×2 (10:09→21:40)
[2019-06-23] MEDS: IMDUR PO SCH (10:09)
[2019-06-23] MEDS: ERYTHROMYCIN BASE PO SCH ×3 (10:10→18:14)
--- NOTE | 2019-06-23 14:54 | ECHO REPORT ---
ORDER DATE: 06/23/2019 SUMMARY OF THE 2-DIMENSIONAL IMAGIN. Aortic valve leaflets were trileaflet. 2. Pulmonic valve was normal. 3. Mitral valve was normal. 4. Tricuspid valve was normal. 5. There is left atrial enlargement. There is mild to moderate mitral regurgitation. Peak velocity across the aortic valve less than 2 m/sec. There is no aortic stenosis. There is mild aortic regurgitation. 6. Mild tricuspid regurgitation. Peak velocity across the tricuspid valve was 3 m/sec. 7. Pulmonary artery systolic pressure of 46 to 50 mmHg. 8. There is no aortic stenosis or regurgitation. 9. Normal left ventricular cavity size. Estimated ejection fraction of 65%. There is diastolic dysfunction. 10. There is no pericardial effusion or obvious intracardiac mass or thrombus seen. cc: MD Paulo Clark MD
[2019-06-23] MEDS: TYLENOL PO PRN (16:24)
--- NOTE | 2019-06-23 19:43 | PROGRESS NOTE ---
DATE: 06/23/2019 SUBJECTIVE: The patient notes that her chest pain seems to be better. Her states that she has had pain similar to this when she had an episode 2 gastroparesis. Notes that she is having significant nausea. She actually currently has a emesis basin in her lap. PHYSICAL EXAM: Temperature 97.5, pulse 57, respiratory 18, BP 125/47.General: Patient is awake, alert. She does appear nauseated, does not appear to be in any respiratory distress. HEENT: Normocephalic. Neck: Supple. Cardiovascular: Regular rate. No murmurs. Chest: Clear. Abdomen: Soft, diffusely tender in the epigastric region. Extremities: Moves all extremities. Neurologic: No focal changes. ASSESSMENT: 1. Chest pain. 2. Gastroparesis. 3. Hypertension although interestingly, patient notes that she is allergic to every blood pressure medication except hydralazine. 4. Hyponatremia, improved. PLAN: The patient was actually scheduled to have a stress test this morning although her declines to continue through with this. Therefore, we will cancel the stress test. We will place her on erythromycin for her gastroparesis as they note this has helped to the past and she is allergic to Raglan. We will continue to follow. cc: Trenton Cedeno MD
[2019-06-24] MEDS: NEXIUM PO SCH (06:01)
[2019-06-24] MEDS: APRESOLINE PO SCH (06:01)
[2019-06-24 07:40] VITALS: BP 119/44
[2019-06-24] MEDS: ERYTHROMYCIN BASE PO SCH (09:24)
--- NOTE | 2019-06-25 00:41 | DISCHARGE SUMMARY ---
ADMISSION DATE: 06/22/2019 DISCHARGE DATE: 06/24/2019 DIAGNOSES: 1. Atypical chest pain. 2. Hyponatremia. 3. Gastroparesis. 4. Hypertension. DIAGNOSTICS: 1. Chest x-ray revealed no evidence of acute disease. 2. Echocardiogram revealed normal left ventricular cavity size with an estimated ejection fraction of 65%. There is diastolic dysfunction. 3. EKG revealed sinus rhythm with a rate of 76. HOSPITAL COURSE: Ms Cruz presented to the emergency room complaining of chest pain. She stated that this pain was consistent with her prior episodes of gastroparesis. She had significant nausea as was common with her gastroparesis. Echocardiogram as stated above. The patient had persistent nausea although the chest pain did relieve. She was scheduled for stress test on the morning of the . The stated that the patient had pain similar to this with her last 2 episodes of gastroparesis. The declined to continue, the patient did follow with his wishes. The stress test was canceled. She was given erythromycin for gastroparesis per Dr. Cedeno as she said she is allergic to Reglan. She ate about half of her meals while in the hospital, had no further chest pain, stated that her nausea was better and she was ready to go home. Sodium did improve to 133. DISCHARGE VITAL SIGNS: Blood pressure is 119/44 with a heart rate of 69, respirations 18, temperature is 97.8 degrees oral with room air saturations 98%-100%. DISCHARGE PHYSICAL EXAMINATION: Cardiovascular: Regular rate and rhythm. S1 and S2 appreciated. She has no lower extremity edema. Calves are nontender bilateral. Pulmonary: Breath sounds are clear with no increased work of breathing noted. Chest rises and falls symmetric with respiration. Gastrointestinal: Abdomen is soft. She does have tenderness in the epigastric region that she states is chronic with her gastroparesis. Bowel sounds are present in all 4 quadrants. Neurologic: She is alert and oriented x3. DISCHARGE MEDICATIONS: 1. Hydralazine 50 mg p.o. t.i.d. 2. Aspirin 81 mg p.o. daily delayed release enteric-coated. 3. Docusate sodium 100 mg p.o. daily. 4. Estradiol 1 mg p.o. daily. 5. Metoprolol tartrate 150 mg p.o. b.i.d. 6. Nexium 20 mg p.o. daily. 7. Erythromycin 250 mg p.o. t.i.d. FOLLOW-UP: With her primary care provider in the next 1 to 2 weeks. She has been instructed to call to schedule an appointment. She has been instructed to call to be seen sooner or return to the emergency room for any syncope, dizziness, any recurring chest pain, palpitations, shortness of breath, cough, fever, chills, temperature greater than 101, any PND, orthopnea, productive cough, any recurring vomiting, diarrhea, constipation, black or bloody vomitus or stools, any hematuria, dysuria, frequency, urgency or for any questions or concerns that she may have. She is being discharged home in stable condition with family members. TIME SPENT: This is a greater than 30 minute discharge. Dictated by YENNY Dooley for Trenton Cedeno MD cc: YENNY Dooley MD
--- NOTE | 2019-06-25 03:17 | DISCHARGE SUMMARY ---
ADMISSION DATE: 06/22/2019 DISCHARGE DATE: 06/24/2019 ADDENDUM: Patient seen and examined by myself. Full note dictated and discussed with nurse practitioner. On discharge, patient is awake, alert, currently in no distress. She notes that her nausea is much improved. She was started on erythromycin in the hospital and she states that her nausea and chest pain improved almost immediately after 1 single dose. Although that seems quite remarkable, we will discharge her home on erythromycin for her gastroparesis and she will follow up outpatient with her primary care. cc: Trenton Cedeno MD
== END 2019-06-24 09:25 | disposition home or self-care (01) ==
LOC: P.ED 09:17 → P.MEDSURG 09:17 → SUATTDRO 10:49 → P.MEDSURG 11:06
PROVIDERS: ATTEND Family Medicine
CPT/HCPCS: 71010; 71045; 80053; 80061; 81001; 82550; 83880; 84443; 84484; 85025; 85610; 85730; 87077; 87088; 87186; 93005; 93306; A9270; J2270; J2405; J7030